=== PATIENT | male | born 1965 | race Caucasian/White ===

== ENCOUNTER → 2017-08-13 | Outpatient (CLI) | payer BC ==
[2017-08-13 12:32] LABS: BASO % 0.8 %; BASO ABS # 0.08 K/uL (0-0.2); EOS % 2.6 %; EOS ABS # 0.26 K/uL (0-0.5); HEMATOCRIT 45.4 % (42-52); HEMOGLOBIN 15.6 g/dL (14.0-18.0); IG# 0.03 K/uL (0.00-0.02); LYMPH ABS # 3.87 K/uL (1.2-3.4); MEAN CELL VOLUME 83.6 fL (80-100); MEAN CORPUSCULAR HEMOGLOBIN 28.7 pg (25-34); MEAN CORPUSCULAR HGB CONC 34.4 g/dl (32-36); MEAN PLATELET VOLUME 9.6 fL (7.4-10.4); MONO % 7.8 %; MONO ABS # 0.77 K/uL (0.11-0.59); NEUT % 49.5 %; NEUT ABS # 4.91 K/uL (1.4-6.5); PLATELET COUNT 311 K/uL (130-400); RED CELL DISTRIBUTION WIDTH CV 12.5 % (11.5-14.5); RED CELL DISTRIBUTION WIDTH SD 37.7 fL (36.4-46.3); WHITE BLOOD COUNT 9.92 K/uL (4.8-10.8)
[2017-08-13 12:57] LABS: BLOOD UREA NITROGEN 17 mg/dl (7-18); CALCIUM 8.7 mg/dl (8.5-10.1); CARBON DIOXIDE 25 mmol/L (21-32); CREATININE 0.91 mg/dl (0.60-1.40); GLUCOSE 97 mg/dl (70-99); SODIUM 138 mmol/L (136-145)
== END | disposition home or self-care (01) ==
LOC: C.LAB1850 10:48
PROVIDERS: ATTEND Surgery
DX: K42.9 Umbilical hernia without obstruction or gangrene (principal); D17.9 Benign lipomatous neoplasm, unspecified; Z01.812 Encounter for preprocedural laboratory examination